=== PATIENT | male | born 1970 | race Caucasian/White ===

== ENCOUNTER 2017-05-19 13:57 | Inpatient (IN) | payer MEDICAID, OTHER ==
--- NOTE | 2017-05-19 14:16 | ED ---
Psych HPI - General Stated Complaint: Petition Time Seen by Provider: 05/19/17 14:00 Source: patient, police, RN notes reviewed, old records reviewed Mode of arrival: ambulatory - History of Present Illness Initial Comments: Is a 46-year-old male with a history of chronic schizophrenia who is brought in by police on a pickup order by Judge Howell. Patient apparently had a hearing 3 days ago and was found to be in need of inpatient care. Patient per the pickup order is noncompliant with treatment/medications. He denies any noncompliance he's not sure why he is here. He does smoke cigarettes he denies any street drugs or alcohol at this time. No fevers chills sweats no trauma. No other complaints MD Complaint: other - Related Data Home Medications Medication Instructions Recorded Confirmed No Known Home Medications [No 05/01/17 05/19/17 Known Home Medications] Allergies Allergy/AdvReac Type Severity Reaction Status Date / Time No Known Allergies Allergy Verified 05/19/17 14:16 Review of Systems ROS Statement: Those systems with pertinent positive or pertinent negative responses have been documented in the HPI. ROS Other: All systems not noted in ROS Statement are negative. Past Medical History Past Medical History: No Reported History History of Any Multi-Drug Resistant Organisms: None Reported Past Surgical History: Unable to Obtain Additional Psychological History / Comment(s): now with psychosis Smoking Status: Never smoker Past Alcohol Use History: None Reported Past Drug Use History: None Reported General Exam - General Exam Comments Initial Comments: This is a well-developed well-nourished awake alert anxious appearing male General appearance: alert, in no apparent distress Head exam: Present: atraumatic, normocephalic, normal inspection Eye exam: Present: normal appearance, PERRL, EOMI. Absent: scleral icterus, conjunctival injection, periorbital swelling ENT exam: Present: mucous membranes dry Neck exam: Present: normal inspection. Absent: tenderness, meningismus, lymphadenopathy Respiratory exam: Present: normal lung sounds bilaterally. Absent: respiratory distress, wheezes, rales, rhonchi, stridor Cardiovascular Exam: Present: regular rate, normal rhythm, normal heart sounds. Absent: systolic murmur, diastolic murmur, rubs, gallop, clicks GI/Abdominal exam: Present: soft, normal bowel sounds. Absent: distended, tenderness, guarding, rebound, rigid Extremities exam: Present: normal inspection, full ROM, normal capillary refill. Absent: tenderness, pedal edema, joint swelling, calf tenderness Back exam: Present: normal inspection Neurological exam: Present: alert, oriented X3, CN II-XII intact Psychiatric exam: Present: anxious, manic Skin exam: Present: warm, dry, intact, normal color. Absent: rash Course Vital Signs 05/19/17 05/19/17 14:01 16:34 Temperature 97.9 F 98.3 F Pulse Rate 18 L 99 Respiratory 116 H 18 Rate Blood Pressure 138/78 145/79 O2 Sat by Pulse 95 98 Oximetry Medical Decision Making - Medical Decision Making Was evaluated by the psychiatric service and will be admitted for inpatient treatment - Lab Data Lab Results 05/19/17 Range/Units 14:28 Urine Opiates Screen Not Detected (NotDetected) Ur Oxycodone Screen Not Detected (NotDetected) Urine Methadone Screen Not Detected (NotDetected) Ur Propoxyphene Screen Not Detected (NotDetected) Ur Barbiturates Screen Not Detected (NotDetected) U Tricyclic Antidepress Not Detected (NotDetected) Ur Phencyclidine Scrn Not Detected (NotDetected) Ur Amphetamines Screen Not Detected (NotDetected) U Methamphetamines Scrn Not Detected (NotDetected) U Benzodiazepines Scrn Not Detected (NotDetected) Urine Cocaine Screen Not Detected (NotDetected) U Marijuana (THC) Screen Detected H (NotDetected) Disposition Clinical Impression: Schizophrenia, acute undifferentiated Disposition: TRANSFER TO PSYCH HOSP/UNIT Condition: Stable
[2017-05-19] MEDS ORDERED: MAG HYDROX/AL HYDROX/SIMETH 30 ML CUP PO PRN (17:56)
[2017-05-19] MEDS ORDERED: LORazepam 1 MG TAB PO PRN (17:56)
[2017-05-19] MEDS ORDERED: MAGNESIUM HYDROXIDE 2,400 MG/10 ML CUP PO PRN (17:56)
[2017-05-19] MEDS ORDERED: ZIPRASIDONE 20 MG VIAL IM PRN (17:56)
--- NOTE | 2017-05-19 18:03 | P.PN ---
Progress Note - Text Progress Note Date: 05/19/17 I went to do the medical consult and patient refused to be seen because he does not believe he needs to be here.
[2017-05-20] MEDS ORDERED: LORazepam 2 MG/ML INJ IM PRN (04:08)
--- NOTE | 2017-05-21 00:09 | P.HP ---
Psychiatric H&P - . H&P Date: 05/20/17 History & Physical: Allergies Allergy/AdvReac Type Severity Reaction Status Date / Time No Known Allergies Allergy Verified 05/19/17 14:16 Vital Signs Temp 97.6 F 05/19/17 17:18 Pulse 112 H 05/19/17 17:18 Resp 18 05/19/17 17:18 BP 131/99 05/19/17 17:18 Pulse Ox 98 05/19/17 16:34 Intake & Output 05/19/17 05/20/17 05/20/17 18:59 06:59 18:59 Weight 81.647 kg Laboratory Last Values Urine Opiates Screen Not Detected (NotDetected) 05/19/17 14:28 Ur Oxycodone Screen Not Detected (NotDetected) 05/19/17 14:28 Urine Methadone Screen Not Detected (NotDetected) 05/19/17 14:28 Ur Propoxyphene Screen Not Detected (NotDetected) 05/19/17 14:28 Ur Barbiturates Screen Not Detected (NotDetected) 05/19/17 14:28 U Tricyclic Antidepress Not Detected (NotDetected) 05/19/17 14:28 Ur Phencyclidine Scrn Not Detected (NotDetected) 05/19/17 14:28 Ur Amphetamines Screen Not Detected (NotDetected) 05/19/17 14:28 U Methamphetamines Scrn Not Detected (NotDetected) 05/19/17 14:28 U Benzodiazepines Scrn Not Detected (NotDetected) 05/19/17 14:28 Urine Cocaine Screen Not Detected (NotDetected) 05/19/17 14:28 U Marijuana (THC) Screen Detected (NotDetected) H 05/19/17 14:28 05/20/17 17:36 IDENTIFYING DATA: Pt is a 46yo WM who was brought in to ED after demand was filed and garbage pick up man order placed. HPI: Patient recently hospitalized involuntarily and deferred his court trial. He was scheduled to follow-up with [facility] per deferral process. A pick-up order was placed after it was reported that the patient did not present to his scheduled appointment. However, upon evaluation today, pt states that he met with Michele (a worker through [facility]) and was supposed to have an intake on Friday as Michele told him he would come to his home. Instead patient was picked up and brought to the hospital. There was some concern from [facility] that patient required an injection of an antipsychotic for prior to outpatient treatment which may have fueled the reason for the pick-up order being filed. Patient is agitated and stating that it is unfair that he is on the unit again. States that "I did nothing wrong...I am not a danger to myself or others". Initially was loud and yelling, but easily calmed down. Although upset, speaking calmly with this provider this morning. Continues to discuss his thoughts of oppression, different shakras and feeling that the people who sent him here should be locked up. PAST PSYCHIATRIC HISTORY: according to staff pt has [place] [facility] [place] Also, previously seen in [facility] with last visit in 2012. Previous medications prescribed include Abilify 20mg QD, Risperdal 0.25mg BID, Wellbutrin SR 150mg BID, Lamictal 25mg BID, Carbamazepine 200mg BID, Lexapro 20mg QD, Ritalin 20mg TID, Ativan 0.5mg PRN daily, Depakote 500mg BID. Unsure if patient has been on a long-acting injectable antipsychotic in the past. Previously diagnosed with Schizoaffective DO, bipolar type, ADHD and Personality DO NOS. PMH: unknown ALLERGIES: NKDA MEDICATIONS: Home Medications Medication Instructions Recorded Confirmed No Known Home Medications [No 05/01/17 05/19/17 Known Home Medications] CHEMICAL DEPENDENCY HISTORY: UDS +MJ; unsure of frequency of use. FAMILY PSYCHIATRIC HISTORY: unknown SOCIAL HISTORY: Pt states that he lives alone in [place], [place]. 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 No further detail about his past at this time. MENTAL STATUS EXAM: Pt is a 46yo WM who is casually dressed. His speech is spontaneous with slight increase in volume and normal rate. Eye contact is fair. Mood is agitated and affect is appropriate. He voices persecutory delusions. No reported hallucinations. Denies SI and HI at this time. Thought process is linear and goal-directed. Unable to assess concentration and orientation. Memory grossly intact. Judgment and Insight is poor. STRENGTHS/WEAKNESSES: able to communicate concerns/poor coping skills, lack of cooperation with treatment INTELLECTUAL FUNCTIONING: average ASSESSMENT: 1. Schizophrenia PLAN: admit to [facility]HU on an involuntary basis. PRN Mauricedon and Ativan IM for agitation. He has not required any injections as of yet. No scheduled psychotropics at this time as patient is opposed to medication and refuses to take. Encourage participation in group activities as appropriate. Continue to monitor for safety. Routine precautions in place. Discuss discharge planning with treatment team. As patient was compliant with outpatient follow-up will attempt to get garbage pick up man order dropped. Will speak with his outpatient provider for further information if available. SW to attempt to obtain collateral information from family and friends if pt gives consent. 05/21/17 00:06 05/21/17 00:08
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
[2017-05-22] MEDS ORDERED: HALOPERIDOL LACTATE 5 MG/ML 1 ML VIAL IM PRN (15:18)
[2017-05-22] MEDS: HALOPERIDOL 5 MG TAB PO SCH (21:24)
[2017-05-23] MEDS: HALOPERIDOL 5 MG TAB PO SCH ×2 (09:33→20:36)
[2017-05-23] MEDS ORDERED: ARIPiprazole 15 MG TAB PO SCH (11:45)
[2017-05-23] MEDS: ARIPiprazole 10 MG TAB PO SCH ×3 (12:46→20:36)
--- NOTE | 2017-05-23 17:22 | PN ---
PROGRESS NOTE DATE OF SERVICE: 05/23/2017 CHIEF COMPLAINT: The patient was admitted due to disorganized behavior, agitation, delusional thinking. He was admitted on a demand for a hearing. INTERVAL HISTORY: Patient has been doing fair. He is quite resistant to taking medications. He continues to focus on the idea that he has been hospitalized on a false premises. He denies that he has any delusional thinking. In spite of that, he makes references throughout the interview to things disconnected from his current situation as well as current reality. As an example, he made comments about how the sun is not out in space, but just behind the clouds and that somehow he is reborn from some ancient existence. When we talked about his issues relating to his involuntary hospitalization, he got quite distressed about the issues. He talked about believing medications would be poison and he saw no indication that he needed to be on medications. He does come out in the day area. He will interact a little with others. He has been reluctant to attend groups. He has not had change in his general health. He tolerates his psychotropic medications. MENTAL STATUS: The patient was restless. He gave fairly good eye contact. He got quite intense through much of the interview. He had an angry manner. He was loud. He did, however, contain himself, in spite of his intensity. His mood was depressed. He was significantly distressed. ASSESSMENT: I will continue the current diagnosis and treatment plan. I had an extensive discussion with the patient regarding his court-ordered status and the expectation for his court hearing, which is coming up soon. The patient asked me what would be the quickest way for him to get out of the hospital. We discussed his getting on medications. I strongly encouraged the patient to give himself a trial on medications while he is in the hospital so that we can work with him toward outpatient planning. The patient did accept getting started on Abilify. I will start Abilify 10 mg twice a day. We will continue to focus on stabilization and discharge planning. DEWAYNE / MARY: [id number] /
[2017-05-24] MEDS: ARIPiprazole 10 MG TAB PO SCH ×2 (09:04→20:22)
[2017-05-24] MEDS: HALOPERIDOL 5 MG TAB PO SCH ×2 (09:04→20:23)
--- NOTE | 2017-05-25 07:26 | PN ---
PROGRESS NOTE DATE OF SERVICE: 05/24/2017 CHIEF COMPLAINT: The patient was admitted due to disorganized behavior, agitation, delusional thinking. He was admitted on demand for hearing. INTERVAL HISTORY: The patient has been doing fairly well. He seems to be making a little progress. He had a quiet evening last night. He slept well. Today he has been up. Staff note that he has been out a little bit more. He did agree to start Abilify and was willing to take 10 mg twice a day. He seems to be a little more organized and appropriate in his thoughts. When I saw him today he was not making the references to many odd things that he had been making yesterday. He asked some appropriate questions. He did seem to be in a little better mood. Staff note that he has not had any episodes of getting loud or angry. He has been coming out more and interacting with others. He has not had change in his general health. He tolerates his psychotropic medications. MENTAL STATUS: Patient gave good eye contact. He was somewhat restless. He answered some questions with appropriate responses. Generally, he was reality based. His affect was a little constricted. His mood was quiet. He did not appear to be distressed. ASSESSMENT: I will continue the current diagnosis and treatment plan. I will continue psychotropic medications the same. I reviewed issues related to the patient's involuntary treatment status. We will continue to focus on stabilization and discharge planning. DEWAYNE / MARY: [id number] /
[2017-05-25] MEDS: ARIPiprazole 10 MG TAB PO SCH ×2 (09:15→20:00)
[2017-05-25] MEDS: HALOPERIDOL 5 MG TAB PO SCH ×2 (09:15→22:38)
[2017-05-25] MEDS: ACETAMINOPHEN TAB 325 MG TAB PO PRN (09:16)
[2017-05-25] MEDS: oxyCODONE-APAP 7.5-325MG 1 EACH TAB PO PRN (19:59)
--- NOTE | 2017-05-25 20:30 | PN ---
PROGRESS NOTE DATE OF SERVICE: 05/25/2017. CHIEF COMPLAINT: The patient was admitted due to disorganized behavior, agitation, delusional thinking. He was admitted on demand for hearing. INTERVAL HISTORY: Patient has been doing fair. He had a quiet evening last night. He slept well. Today he has been up. He does come out in the day area. He interacts with others. He will attend some group activities. He continues to complain about his situation and his court ordered standing. He has been taking his medications. Overall, it is noted that his content of speech is more reality based. He is much less inclined to regress into delusional talk, which was quite noted on Friday when I saw him. He has generally been cooperative and appropriate in his behavior. He has not had change in his general health. He tolerates his psychotropic medication. MENTAL STATUS: The patient gave fairly good eye contact. Psychomotor activity was restless. Thoughts were clear. Affect was anxious. His mood was dysphoric. He was moderately distressed. ASSESSMENT: I will continue the current diagnosis and treatment plan. Continue psychotropic medications the same. Patient will continue Abilify 10 mg twice a day. I did again review issues related to his status with his demand for hearing. We will continue to focus on stabilization and discharge planning. MMODL / IJN: [id number] /
[2017-05-26] MEDS: HALOPERIDOL 5 MG TAB PO SCH (07:47)
[2017-05-26] MEDS: ARIPiprazole 10 MG TAB PO SCH ×2 (07:47→21:47)
[2017-05-26] MEDS: oxyCODONE-APAP 7.5-325MG 1 EACH TAB PO PRN ×3 (07:48→21:49)
--- NOTE | 2017-05-26 16:03 | PN ---
PROGRESS NOTE CHIEF COMPLAINT: The patient was admitted due to disorganized behavior, agitation and delusional thinking. He was admitted on demand for hearing. INTERVAL HISTORY: The patient has been doing fairly well overall. He had a quiet evening last night. He slept well today. He has been up and about. He continues to be disgruntled about the court issues still. He also continues to be fairly reality-based and does not tend to regress into talk about odd and very distant things that have no relevance to reality or his current situation. He understands that the court hearing is coming up and that between now and then there is not much that will change. He has been taking his medications. He has been cooperative. He comes out in the day area. He attends some groups. He has not had change in his general health. He tolerates his psychotropic medications. MENTAL STATUS: Patient gave fair eye contact. He was restless. His thoughts were clear. He was somewhat angry in discussing the court situation. We were able to come to some agreement where he accepted his current situation. He did not seem to be significantly distressed. ASSESSMENT: I will continue the current diagnosis and treatment plan. He will continue psychotropic medications the same. I discussed with the patient that Mental Health may be recommending a long-acting injectable of his Abilify. The patient stated that he was not inclined towards shots. He does not like shots and was worried about the reaction. I discussed with him that on the other hand, the shot may make things much easier for him as far as not having to worry about taking medications on a daily basis. He understands that we will be part of the follow-up planning to address these issues with . We will continue to focus on stabilization and discharge planning. MMMARELYL / HAN: [id number] /
[2017-05-27] MEDS: ARIPiprazole 10 MG TAB PO SCH ×2 (08:09→20:24)
[2017-05-27] MEDS: oxyCODONE-APAP 7.5-325MG 1 EACH TAB PO PRN ×3 (08:10→20:55)
[2017-05-27] MEDS: ACETAMINOPHEN TAB 325 MG TAB PO PRN (14:39)
--- NOTE | 2017-05-27 16:59 | P.PN ---
Progress Note - Text Progress Note Date: 05/27/17 46yo CM admitted on 05/19/17 on a demand for court hearing Last 24hrs: Patient laying in bed asleep during rounds today. When approached he states "it 's not a good morning, you slander me, bear false judgment, I have nothing to say to you". Pt does go on to voice how he feels that I am doing the devil's work and that he is trying to enlighten me. Patient has been cooperative on the unit. No longer yelling when upset. Not displaying any behavioral disturbances. He is now compliant with his prescribed medications. Does not report any adverse effects. Slept 5 hours. Eating well and keeping up with hygiene. Has attended some groups on the unit. MSE: Pt is a 46yo WM casually dressed and fairly well-groomed. His speech is spontaneous with normal rate and volume. Eye contact is good. Mood is calm but frustrated. His affect is appropriate and broad. No reported hallucinations. Does continue to voice delusions. Denies SI and HI at this time. Thought process is linear and logical. Judgment is fair and Insight is limited. ASSESSMENT: 1. Schizophrenia PLAN: Encourage patient to continue with proper hygiene, food intake and appropriate behaviors on the unit. Awaiting court hearing on May 28. Continue Abilify 10mg PO BID. Discuss discharge planning with treatment team following court hearing.
[2017-05-27 20:56] VITALS: RESP 18
--- NOTE | 2017-05-28 06:50 | P.HPMEDMHU ---
History of Present Illness H&P Date: 05/25/17 Chief Complaint: Lower back pain The patient is a 46 her old male who is admitted to the mental health unit is history of schizophrenia, the patient was apparently recently hospitalized involuntarily and deferred his court trial. Apparently was thought the patient was a danger to himself and was recommended for admission, see mental health H&P. We are asked to see the patient yesterday however refused any medical consultation, however today the patient does complain of lower back pain which she reports to be chronic, he reports a history of lumbar disc disease and history of cervical and thoracic stenosis and as previously be seen by pain management and was reportedly on chronic narcotic medications taking proximally 10 mg of Percocet every 6 hours when necessary daily, more recently the patient reports weaning himself off any narcotic medications and has not been taking any for the last several months. Today he reports some mild to moderate pain in his lower back, denies any radicular type symptoms or any bowel or bladder issues. Past Medical History Past Medical History: No Reported History History of Any Multi-Drug Resistant Organisms: None Reported Past Surgical History: Unable to Obtain Additional Psychological History / Comment(s): now with psychosis Smoking Status: Never smoker Past Alcohol Use History: None Reported Past Drug Use History: None Reported Medications and Allergies Home Medications Medication Instructions Recorded Confirmed Type No Known Home Medications [No 05/01/17 05/19/17 History Known Home Medications] Allergies Allergy/AdvReac Type Severity Reaction Status Date / Time No Known Allergies Allergy Verified 05/19/17 14:16 Physical Exam Vitals: Intake and Output 05/25/17 05/25/17 05/25/17 06:59 14:59 22:59 Other: Weight 74.474 kg Patient Weight 05/26/17 06:59 Weight 74.474 kg Constitutional: No acute distress, conversant, pleasant Eyes: Anicteric sclerae, moist conjunctiva, no lid-lag, PERRLA ENMT: NC/AT,Oropharynx clear, no erythema, exudates Neck:Supple, FROM, no masses, or JVD, No carotid bruits; No thyromegaly Lungs: Clear to auscultation, Clear to percussion, Normal respiratory effort, no accessory muscle use Cardiovascular: Heart regular in rate and rhythm, No murmurs, gallops, or rubs no peripheral edema Abdominal: Soft Nontender, nom distended, no guarding, no rebound or rigidity, Normoactive bowel sounds No hepatomegaly, No splenomegaly, No palpable mass No abdominal wall hernia noted Skin: Normal temperature, tone, texture, turgor, No induration No subcutaneous nodules, No rash, lesions, No ulcers Extremities:No digital cyanosis No clubbing, Pedal pulses intact and symmetrical Radial pulses intact and symmetrical Normal gait and station, No calf tenderness Psychiatric: Alert and oriented to person, place and time, Appropriate affect Intact judgement Neuro: Muscles Strength 5/5 in all 4 extremities, Sensation to light touch grossly present throughout, Cranial nerves II-XII grossly intact. No focal sensory deficits Cranial Nerve Examination - Cranial Nerves Cranial Nerve II- Optic: Intact Cranial Nerve III- Oculomotor: Intact Cranial Nerve IV- Trochlear: Intact Cranial Nerve V- Trigeminal: Intact Cranial Nerve - Abducens: Intact Cranial Nerve VII- Facial: Intact Cranial Nerve VIII- Auditory: Intact Cranial Nerve IX- Glossopharyngeal: Intact Cranial Nerve X- Vagus: Intact Cranial Nerve XI- Accessory: Intact Cranial Nerve XII- Hypoglossal: Intact Assessment and Plan (1) DJD (degenerative joint disease), lumbar Current Visit: Yes Status: Acute Code(s): M47.816 - SPONDYLOSIS W/O MYELOPATHY OR RADICULOPATHY, LUMBAR REGION SNOMED Code(s): 875280101 (2) Chronic lumbar pain Current Visit: Yes Status: Acute Code(s): M54.5 - LOW BACK PAIN; G89.29 - OTHER CHRONIC PAIN SNOMED Code(s): 313037109 (3) Schizophrenia, acute undifferentiated Current Visit: Yes Status: Acute Code(s): F20.3 - UNDIFFERENTIATED SCHIZOPHRENIA SNOMED Code(s): 487595747 Plan: patient is admitted to the mental health unit we'll defer any management of his psychiatric illnesses to the primary team. Given patient's detailed history on his chronic lower cervical and thoracic back pain. We'll reinstitute his chronic pain medications will start Percocet 7.5 mg PO q 8 prn. Thank you for this consult will sign off as patient is medically stable
[2017-05-28] MEDS: ARIPiprazole 10 MG TAB PO SCH ×2 (08:27→20:22)
[2017-05-28] MEDS: oxyCODONE-APAP 7.5-325MG 1 EACH TAB PO PRN ×3 (08:27→20:22)
--- NOTE | 2017-05-28 17:10 | P.PN ---
Progress Note - Text Progress Note Date: 05/28/17 46yo CM admitted on 05/19/[address] hearing Last 24hrs: Patient awaiting court hearing today. He continues to be compliant with medications. Not displaying any behavioral disturbances on the unit. He has not been yelling on the unit. Sleeping well and maintaining proper hygiene. Agreed to treatment and was placed on a 60/90. Pt requesting to be discharged and informed that he will need to sign a treatment agreement with [facility] tomorrow prior to discharge. Pt understanding. MSE: Pt is a 46yo WM casually dressed and fairly well-groomed. His speech is spontaneous with normal rate and volume. Eye contact is good. Mood is calm but frustrated. His affect is appropriate and broad. No reported hallucinations. Does continue to voice delusions. Denies SI and HI at this time. Thought process is linear and logical. Judgment is fair and Insight is limited. ASSESSMENT: 1. Schizophrenia PLAN: Encourage patient to continue with proper hygiene, food intake and appropriate behaviors on the unit. Continue Abilify 10mg PO BID. Plan to discharge tomorrow.
[2017-05-29 06:59] VITALS: BP 120/71; PULSE 90; TEMP 98.5
[2017-05-29] MEDS: ARIPiprazole 10 MG TAB PO SCH (08:11)
[2017-05-29] MEDS: oxyCODONE-APAP 7.5-325MG 1 EACH TAB PO PRN (08:13)
--- NOTE | 2017-05-29 10:20 | P.PN ---
Progress Note - Text Progress Note Date: 05/29/17 46yo CM admitted on 05/19/[address] for [address] hearing Last 24hrs: Patient upset with this provider today. He states that he does not want me to be involved in his case any longer as he feels I have slandered his name. Informed that he would be discharged today following treatment agreement with [facility]. Conversation ended abruptly by patient. Staff report that patient remains cooperative and without any behavioral disturbances on the unit. He has been compliant with his medication and no reported adverse effects. MSE: Pt is a 46yo WM casually dressed and fairly well-groomed. His speech is spontaneous with normal rate and volume. Eye contact is good. Mood is agitated. His affect is appropriate. No reported hallucinations. Has not reported any delusions today with this provider. Denies SI and HI at this time. Thought process is linear and logical. Judgment is fair and Insight is limited. ASSESSMENT: 1. Schizophrenia PLAN: Encourage patient to continue with proper hygiene, food intake and appropriate behaviors on the unit. Continue Abilify 10mg PO BID. Plan to discharge today after established treatment plan with [facility].
--- NOTE | 2017-06-19 17:53 | P.DS ---
Providers Date of admission: 05/19/17 16:22 Expected date of discharge: 05/29/17 Attending physician: Emily Quiroz, DO Consults: 05/19/17 17:56 Consult Physician Routine Consulting Provider: Samira Olivas Consult Reason/Comments: H and P Do you want consulting provider notified?: Yes Primary care physician: Stated None - Discharge Diagnosis(es) (1) Schizophrenia Status: Acute Hospital Course: Upon admission, patient stated that "I did nothing wrong...I am not a danger to myself or others". Initially was loud and yelling, but easily calmed down. Continued to discuss his thoughts of oppression, different shakras and feeling that the people who sent him here should be locked up. He continued to focus on his thoughts that he was being hospitalized on false premises. Patient denied delusions but made references to things disconnected from his current situation and reality. Initially Haldol 5mg BID was ordered; however, pt refused this medication as he felt that he did not need psychotropic medications as he did not feel he had a mental illness. During hospitalization , Dr. Brewer examined this patient as coverage for this provider. While covering the patient, he started him on Abilify 10mg BID and patient agreed to this regimen. He remained compliant with medication throughout the remainder of his hospital stay. Patient did not display any behavioral disturbances requiring PRN medications. Although he became upset with this provider as he did not approve of being diagnosed with Schizophrenia and felt that I was "bearing false witness and slandering my name", he did remain pleasant and cooperative with the other staff members on the unit. He had a court hearing scheduled on May 28 to determine commitment as he had been admitted under a demand and pick-up order after signing deferral. During his hearing, patient decided to comply with a 60/90 commitment order without the need for further proceedings, such as testifying, in court. On day of discharge, patient continued to be compliant with medication without any adverse effects reported. He continued to deny SI, HI and AVH. Patient did not appear to be a danger to himself or others and was deemed able to care for himself independently; therefore, he was discharged in stable condition with plan to follow-up with [facility] on an outpatient basis per signed treatment plan. Patient Condition at Discharge: Stable Plan - Discharge Summary New Discharge Prescriptions: New ARIPiprazole [Abilify] 10 mg PO 899,2099 #60 tab Discharge Medication List ARIPiprazole [Abilify] 10 mg PO 00,2099 #60 tab 05/29/17 [Rx] Follow up Appointment(s)/Referral(s): [facility] [Outside] - 06/02/17 3:00 pm (06/02/17 at 3:00 pm with Michele in [place] 06-17-17 @ 2:[address] Campuzano in [place]) None,Stated [Primary Care Provider] - 1-2 days Patient Instructions/Handouts: Schizophrenia (DC) Activity/Diet/Wound Care/Special Instructions: Remove all weapons and firearms from the home; Refrain from street drugs and alcohol; Regular diet; Activity as tolerated; Follow-up with your PCP in 1-2 days; Keep all scheduled follow-up appointments for continuity of care; Any problems call the Crisis Line at or 431 in case of emergency; Call either your PCP or your Outpatient Psychiatric services for med. refills. Discharge Disposition: HOME SELF-CARE
== END 2017-05-29 12:12 | disposition home or self-care (01) | DRG 750 ==
LOC: EC 13:57 → 3MHU 16:22
PROVIDERS: ADMIT Psychiatry & Neurology Psychiatry; ATTEND Psychiatry & Neurology Psychiatry
DX: F20.9 Schizophrenia, unspecified (principal); F39 Unspecified mood [affective] disorder; F90.9 Attention-deficit hyperactivity disorder, unspecified type; F17.210 Nicotine dependence, cigarettes, uncomplicated; Z91.19 Patient's noncompliance with other medical treatment and regimen
CPT/HCPCS: 80306; 82075; 99285

== ENCOUNTER 2023-03-03 11:00 | Inpatient (IN) | payer MEDICAID, OTHER ==
[2023-03-03 11:52] LABS: Basophils % (A) 0 %; Eosinophils # (A) 0.1 k/uL (0-0.7); Eosinophils % (A) 1 %; HCT 44.7 % (39.0-53.0); Lymphocytes # (A) 1.4 k/uL (1.0-4.8); Lymphocytes % (A) 14 %; MCH 32.7 pg (25.0-35.0); MCHC 33.6 g/dL (31.0-37.0); MCV 97.4 fL (80.0-100.0); Mean Platelet Volume 7.6; Monocytes # (A) 0.6 k/uL (0-1.0); Monocytes % (A) 6 %; Neutrophils # (A) 7.3 k/uL (1.3-7.7); Neutrophils % (A) 77 %; Platelet Count 292 k/uL (150-450); RBC 4.59 m/uL (4.30-5.90); RDW 13.3 % (11.5-15.5); WBC 9.6 k/uL (3.8-10.6)
[2023-03-03 12:08] LABS: African American GFR (CKD) >90 (>60 ml/min/1.73 sqM); Alcohol <10 mg/dL; Anion Gap 15 mmol/L; Blood Urea Nitrogen 23 mg/dL (9-20); Calcium 9.3 mg/dL (8.4-10.2); Carbon Dioxide 19 mmol/L (22-30); Chloride 105 mmol/L (98-107); Glucose 132 mg/dL (74-99); Non-African American GFR(CKD) 85 (>60 ml/min/1.73 sqM); Potassium 3.7 mmol/L (3.5-5.1); Sodium 139 mmol/L (137-145)
[2023-03-03] MEDS ORDERED: LORazepam 2 MG/ML INJ IM STA (12:26)
[2023-03-03] MEDS ORDERED: HALOPERIDOL LACTATE 5 MG/ML 1 ML VIAL IM STA (12:26)
[2023-03-03 12:40] LABS: Amphetamine Screen,Urine Not Detected (NotDetected); Barbiturate Screen,Urine Not Detected (NotDetected); Benzodiazepines Screen,Urine Not Detected (NotDetected); Cocaine Screen,Urine Not Detected (NotDetected); Methadone Screen, Urine Not Detected (NotDetected); Opiate Screen,Urine Not Detected (NotDetected); Oxycodone Screen, Urine Not Detected (NotDetected); Phencyclidine Screen,Urine Not Detected (NotDetected); Tricyclic Antidepressant,Urine Not Detected (NotDetected); Urn Cannabinoid Scrn Detected (NotDetected)
--- NOTE | 2023-03-03 15:29 | ED ---
General Adult HPI - General Chief complaint: Psychiatric Symptoms Stated complaint: mental health Time Seen by Provider: 03/03/23 11:02 Source: patient, police, RN notes reviewed, old records reviewed Mode of arrival: EMS - History of Present Illness Initial comments: Patient is a 52-year-old male who presents emergency Department in place custody and petitioned for paranoiac, combative behavior and delusions. Patient was threatening construction workers with shovel. He technically spitting in the please face. States we are been controlled by the Covid virus. States they is on the apocalypse is coming. Denies any suicidal ideations or attempts or plans. Denies any homicidal ideations, attempts, plans. Denies any hallucinations. His no other acute complaints at this time. Is currently in 4 point restraints as he is not cooperative with staff and is violent. - Related Data Home Medications Medication Instructions Recorded Confirmed No Known Home Medications 03/03/23 03/03/23 Allergies Allergy/AdvReac Type Severity Reaction Status Date / Time No Known Allergies Allergy Verified 05/19/17 14:16 Review of Systems ROS Statement: Those systems with pertinent positive or pertinent negative responses have been documented in the HPI. Review of Systems: CONST: Denies fever EYES: Denies blurry vision ENT: Denies nasal congestion C/V: Denies Chest pain RESP: Denies shortness of breath GI: Denies abdominal pain : Denies dysuria SKIN: Denies rash. MSK: Denies joint pain. NEURO: Denies headache PSYCH: Denies suicidal and homicidal ideations/plans/attempts. Denies visual or auditory hallucinations. ROS Other: All systems not noted in ROS Statement are negative. Past Medical History Past Medical History: No Reported History History of Any Multi-Drug Resistant Organisms: None Reported Past Surgical History: Unable to Obtain Past Psychological History: Schizophrenia Past Alcohol Use History: None Reported Past Drug Use History: None Reported General Exam - General Exam Comments Initial Comments: General: Appears disheveled. Currently in 4-point restraints. Appears delusional with paranoia. HEAD: Normal with no signs of head trauma. EYES: PERRLA, EOMI, conjunctiva normal, no discharge. Pupils are 3 mm equal bilaterally. ENT: Hearing grossly intact, normal oropharynx. RESPIRATORY: Clear breath sounds bilaterally. No wheezes, rales, or rhonchi. C/V: Regular rate and rhythm. S1 and S2 auscultated,peripheral pulses 2+ and intact throughout ABD: Abd is soft, nontender, nondistended EXT: Normal range of motion, no obvious deformity SKIN: No rashes or lesions observed on exposed skin. NEURO: Alert and oriented x 4. Course Vital Signs 03/03/23 03/03/23 03/03/23 11:01 11:02 11:05 Temperature 98 F Pulse Rate 118 H 100 100 Respiratory 20 20 20 Rate Blood Pressure 140/100 140/100 140/100 O2 Sat by Pulse 99 98 98 Oximetry 03/03/23 03/03/23 03/03/23 13:05 15:00 16:00 Temperature 98 F Pulse Rate 98 70 68 Respiratory 20 20 16 Rate Blood Pressure 130/60 130/60 96/60 O2 Sat by Pulse 98 98 98 Oximetry 03/03/23 17:48 Temperature Pulse Rate 56 L Respiratory 20 Rate Blood Pressure 110/60 O2 Sat by Pulse 98 Oximetry Procedures - Restraint - Face to Face Restraint Occurrence 1 Patient's Immediate Situation: Endangers self safety, Endangers others' safety, Endangers staff safety, Violent behavior Patient's Reaction to the Intervention: Uncooperative Patient's Medical & Behavioral Condition: Awake, Alert, Follows directions Need to Continue or Terminate Restraint or Seclusion: Continue Face to Face Eval of Restraint Date: 03/03/23 Face to Face Eval of Restraint Time: 10:45 Medical Decision Making - Medical Decision Making Was pt. sent in by a medical professional or institution (, PA, FLOOR COVERER, urgent care, hospital, or snf...) When possible be specific @ -No Did you speak to anyone other than the patient for history (EMS, parent, family, police, friend...)? What history was obtained from this source @ -No Did you review nursing and triage notes (agree or disagree)? Why? @ -I reviewed and agree with nursing and triage notes Were old charts reviewed (outside hosp., previous admission, EMS record, old EKG, old radiological studies, urgent care reports/EKG's, snf records)? Report findings @ -No old charts were reviewed Differential Diagnosis (chest pain, altered mental status, abdominal pain women, abdominal pain men, vaginal bleeding, weakness, fever, dyspnea, syncope, headache, dizziness, GI bleed, back pain, seizure, CVA, palpatations, mental health, musculoskeletal)? @ -Differential Mental Health Depression, anxiety, bipolar, psychosis, schizophrenia, borderline personality, situational depression, adjustment disorder, behavioral disorder, brain tumor, malingering, substance abuse, encephalopathy, medication reaction, dementia, hypothyroidism, degenerative neurologic disorder, lupus.... This is not meant to be all-inclusive list EKG interpreted by me (3pts min.). @ -None done X-rays interpreted by me (1pt min.). @ -None done CT interpreted by me (1pt min.). @ -None done U/S interpreted by me (1pt. min.). @ -None done What testing was considered but not performed or refused? (CT, X-rays, U/S, labs)? Why? @ -None What meds were considered but not given or refused? Why? @ -None Did you discuss the management of the patient with other professionals (professionals i.e. , PA, FLOOR COVERER, lab, RT, psych nurse, web content & social media manager, data analysis assistant, teacher, nuclear officer, family independence case manager)? Give summary @ -Discussed with the EPS who agreed to evaluation. EPS evaluated patient and determined the patient does meet inpatient criteria. Requested certification be completed which was done by myself. Was smoking cessation discussed for >3mins.? @ -No Was critical care preformed (if so, how long)? @ -No Were there social determinants of health that impacted care today? How? (Homelessness, low income, unemployed, alcoholism, drug addiction, transpo rtation, low edu. Level, literacy, decrease access to med. care, alf, rehab)? @ -No Was there de-escalation of care discussed even if they declined (Discuss DNR or withdrawal of care, Hospice)? DNR status @ -No What co-morbidities impacted this encounter? (DM, HTN, Smoking, COPD, CAD, Cancer, CVA, ARF, Chemo, Hep., AIDS, mental health diagnosis, sleep apnea, morbid obesity)? @ -Prior mental health illness. Was patient admitted / discharged? Hospital course, mention meds given and route, prescriptions, significant lab abnormalities, going to OR and other pertinent info. @ -Based on the patient's presentation and physical exam, he is delusional and paranoid I do believe that he requires psychiatric evaluation. He was placed in green scrubs. He was placed in 4 point restraints. Rook-[id number]-[id number] with by myself. He is not cooperative and is not redirectable with verbal instructions and therefore was administered IM Haldol and Ativan for agitation. We will obtain basic labs as well as Covid swab. Vital signs within acceptable limits. Alcohol level undetectable. UDS positive for marijuana. Remainder of lavatory studies within acceptable limits. HIV and hepatitis screening was obtained as the patient spit in the police officers face. At this time patient is medically cleared for evaluation by psychiatry. Disposition is pending psychiatric evaluation. EPS notified. EPS evaluated the patient. I was notified the patient does meet inpatient criteria. Requested clinical certificate which I completed. Patient is pending psychiatric admissio n. Undiagnosed new problem with uncertain prognosis? @ -No Drug Therapy requiring intensive monitoring for toxicity (Heparin, Nitro, Insulin, Cardizem)? @ -No Were any procedures done? @ -No Diagnosis/symptom? @ -Encounter for psychiatric evaluation, acute psychosis Acute, or Chronic, or Acute on Chronic? @ -Acute Uncomplicated (without systemic symptoms) or Complicated (systemic symptoms)? @ -Complicated Side effects of treatment? @ -No Exacerbation, Progression, or Severe Exacerbation? @ -No Poses a threat to life or bodily function? How? (Chest pain, [place], [place], pneumonia, PE, COPD, DKA, ARF, appy, cholecystitis, CVA, Diverticulitis, Homicidal, Suicidal, threat to staff... and all critical care pts) @ -Yes - Lab Data Result diagrams: 03/03/23 11:02 03/03/23 11:02 Lab Results 03/03/23 03/03/23 03/03/23 Range/Units 11:02 11:02 11:02 WBC 9.6 (3.8-10.6) k/uL RBC 4.59 (4.30-5.90) m/uL Hgb 15.0 (13.0-17.5) gm/dL Hct 44.7 (39.0-53.0) % MCV 97.4 (80.0-100.0) fL MCH 32.7 (25.0-35.0) pg MCHC 33.6 (31.0-37.0) g/dL RDW 13.3 (11.5-15.5) % Plt Count 292 (150-450) k/uL MPV 7.6 Neutrophils % 77 % Lymphocytes % 14 % Monocytes % 6 % Eosinophils % 1 % Basophils % 0 % Neutrophils # 7.3 (1.3-7.7) k/uL Lymphocytes # 1.4 (1.0-4.8) k/uL Monocytes # 0.6 (0-1.0) k/uL Eosinophils # 0.1 (0-0.7) k/uL Basophils # 0.0 (0-0.2) k/uL Sodium 139 (137-145) mmol/L Potassium 3.7 (3.5-5.1) mmol/L Chloride 105 (98-107) mmol/L Carbon Dioxide 19 L (22-30) mmol/L Anion Gap 15 mmol/L BUN 23 H (9-20) mg/dL Creatinine 1.01 (0.66-1.25) mg/dL Est GFR (CKD-EPI)AfAm >90 (>60 ml/min/1.73 sqM) Est GFR (CKD-EPI)NonAf 85 (>60 ml/min/1.73 sqM) Glucose 132 H (74-99) mg/dL Calcium 9.3 (8.4-10.2) mg/dL Urine Opiates Screen Not Detected (NotDetected) Ur Oxycodone Screen Not Detected (NotDetected) Urine Methadone Screen Not Detected (NotDetected) Ur Propoxyphene Screen Not Detected (NotDetected) Ur Barbiturates Screen Not Detected (NotDetected) U Tricyclic Antidepress Not Detected (NotDetected) Ur Phencyclidine Scrn Not Detected (NotDetected) Ur Amphetamines Screen Not Detected (NotDetected) U Methamphetamines Scrn Not Detected (NotDetected) U Benzodiazepines Scrn Not Detected (NotDetected) Urine Cocaine Screen Not Detected (NotDetected) U Marijuana (THC) Screen Detected H (NotDetected) Serum Alcohol <10 mg/dL Hep Bs Antigen Hep B Core Total Ab Hep C IgG Ab HIV (1&2) Ag/Ab (Rapid) (Nonreactive) Influenza Type A (PCR) (Not Detectd) Influenza Type B (PCR) (Not Detectd) RSV (PCR) (Not Detectd) SARS-CoV-2 (PCR) (Not Detectd) 03/03/23 03/03/23 03/03/23 Range/Units 11:02 11:02 11:02 WBC (3.8-10.6) k/uL RBC (4.30-5.90) m/uL Hgb (13.0-17.5) gm/dL Hct (39.0-53.0) % MCV (80.0-100.0) fL MCH (25.0-35.0) pg MCHC (31.0-37.0) g/dL RDW (11.5-15.5) % Plt Count (150-450) k/uL MPV Neutrophils % % Lymphocytes % % Monocytes % % Eosinophils % % Basophils % % Neutrophils # (1.3-7.7) k/uL Lymphocytes # (1.0-4.8) k/uL Monocytes # (0-1.0) k/uL Eosinophils # (0-0.7) k/uL Basophils # (0-0.2) k/uL Sodium (137-145) mmol/L Potassium (3.5-5.1) mmol/L Chloride (98-107) mmol/L Carbon Dioxide (22-30) mmol/L Anion Gap mmol/L BUN (9-20) mg/dL Creatinine (0.66-1.25) mg/dL Est GFR (CKD-EPI)AfAm (>60 ml/min/1.73 sqM) Est GFR (CKD-EPI)NonAf (>60 ml/min/1.73 sqM) Glucose (74-99) mg/dL Calcium (8.4-10.2) mg/dL Urine Opiates Screen (NotDetected) Ur Oxycodone Screen (NotDetected) Urine Methadone Screen (NotDetected) Ur Propoxyphene Screen (NotDetected) Ur Barbiturates Screen (NotDetected) U Tricyclic Antidepress (NotDetected) Ur Phencyclidine Scrn (NotDetected) Ur Amphetamines Screen (NotDetected) U Methamphetamines Scrn (NotDetected) U Benzodiazepines Scrn (NotDetected) Urine Cocaine Screen (NotDetected) U Marijuana (THC) Screen (NotDetected) Serum Alcohol mg/dL Hep Bs Antigen Nonreactive Hep B Core Total Ab Nonreactive Hep C IgG Ab Nonreactive HIV (1&2) Ag/Ab (Rapid) Nonreactive (Nonreactive) Influenza Type A (PCR) Not Detected (Not Detectd) Influenza Type B (PCR) Not Detected (Not Detectd) RSV (PCR) Not Detected (Not Detectd) SARS-CoV-2 (PCR) Not Detected (Not Detectd) Disposition Clinical Impression: Acute psychosis, Encounter for psychiatric assessment Disposition: ADMITTED IP TO THIS HOSP Condition: Stable
[2023-03-03 18:32] LABS: Hepatitis B Surface Antigen Nonreactive; Hepatitis C IgG Antibody Nonreactive
[2023-03-03] MEDS ORDERED: LORazepam 2 MG/ML INJ IM PRN (21:44)
[2023-03-03] MEDS ORDERED: IBUPROFEN 600 MG TAB PO PRN (21:44)
[2023-03-03] MEDS ORDERED: MAGNESIUM HYDROXIDE 2,400 MG/30 ML CUP PO PRN (21:44)
[2023-03-03] MEDS ORDERED: MAG HYDROX/AL HYDROX/SIMETH 30 ML CUP PO PRN (21:44)
[2023-03-03] MEDS ORDERED: LORazepam 1 MG TAB PO PRN (21:44)
[2023-03-03] MEDS ORDERED: HALOPERIDOL LACTATE 5 MG/ML 1 ML VIAL IM PRN (21:44)
[2023-03-03] MEDS ORDERED: haloperidoL 5 MG TAB PO PRN (21:44)
[2023-03-03] MEDS ORDERED: ACETAMINOPHEN TAB 325 MG TAB PO PRN (21:44)
[2023-03-04] MEDS: FOLIC ACID 1 MG TAB PO SCH (10:32)
[2023-03-04] MEDS: NICOTINE 14MG/24HR PATCH TRANSDERM SCH (10:32)
[2023-03-04 12:35] LABS: Appearance,Urine Cloudy (Clear); Bilirubin,Urine 1+ (Negative); Blood,Urine Negative (Negative); Calcium Oxalate Crystals,Urine Moderate /hpf; Glucose,Urine (UA) Negative (Negative); Hyaline Casts,Urine 29 /lpf (0-2); Ketones,Urine Trace (Negative); Leukocyte Esterase,Urine Negative (Negative); Mucus,Urine Many /hpf; Nitrite,Urine Negative (Negative); PH, Urine 5.5 (5.0-8.0); Protein,Urine 1+ (Negative); RBC,Urine 4 /hpf (0-5); Specific Gravity,Urine 1.033 (1.001-1.035); WBC,Urine 3 /hpf (0-5)
[2023-03-04 12:41] LABS: Color,Urine Yellow
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
[2023-03-04] MEDS: PALIPERIDONE 3 MG TAB.ER.24 PO SCH (20:23)
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
[2023-03-05 07:09] VITALS: RESP 16
--- NOTE | 2023-03-05 09:00 | XR ---
EXAMINATION TYPE: XR lumbar spine 2 or 3V DATE OF EXAM: 03/05/2023 CLINICAL HISTORY: pain TECHNIQUE: Three views of the lumbar spine are submitted. COMPARISON: None. FINDINGS: There are 5 lumbar type vertebral bodies identified. The lumbar spine shows satisfactory alignment w ithout evidence of acute fracture or dislocation. Vertebral body heights are within normal limits. Moderate to severe degenerative disc space narrowing L5-S1 The overlying soft tissue appears unremar kable. IMPRESSION: No acute fracture or dislocation is seen in the lumbar spine. ICD 10 NO FRACTURE, INITIAL EVALUATION
[2023-03-05] MEDS: NICOTINE 14MG/24HR PATCH TRANSDERM SCH ×2 (09:01→09:55)
[2023-03-05] MEDS: PALIPERIDONE 3 MG TAB.ER.24 PO SCH (09:02)
[2023-03-05] MEDS: FOLIC ACID 1 MG TAB PO SCH (09:02)
--- NOTE | 2023-03-05 11:45 | P.PN ---
Progress Note - Text Progress Note Date: 03/05/23 Interval History: Patient was seen wandering the hallways and was directable and agreeable to speak with magazine writer in his room. Currently, the patient is not reporting any suicidal or homicidal ideation, intention or plan. He continues to report bizarre delusions including feeling like the [place] has placed radio waves and signals in his neighborhood targeting him. He also appears to be religiously preoccupied with his restorationist he praises "Tiamat." He remains fixated on being discharged so that he may take care of his pet cats. Today however, he is agreeable to starting medication. After significant discussion, he states that he will take the Abilify and lithium. His insight continues to be poor as he does not believe that he has bipolar. Mental Status Exam: General Appearance: Patient appears to be stated age is alert, directable, and cooperative. Behavior: Patient is calmly seated without any agitated behavior. Speech: Patient's speech is fluent and less pressured than yesterday. Tangential at times. Mood/Affect: Mood is "worried about my cats," affect is congruent and intense and nervous. Suicidality/Homicidality: Patient denies any suicidal or homicidal ideation. Perceptions: Patient denies any visual hallucinations and denies any auditory h allucinations Though content/process: Patient continues to endorse bizarre delusional thought content, paranoia, worship preoccupation, grandiosity Memory and concentration: AOX3, grossly intact for the purposes of this session Judgment and insight: Poor Vital Signs Temp 97.3 F L 03/05/23 06:34 Pulse 90 03/05/23 06:34 Resp 16 03/05/23 06:34 BP 115/70 03/05/23 06:34 Pulse Ox 97 03/04/23 06:47 FiO2 Laboratory Results - Last 24 Hours 03/04/23 12:10 Urine Color Yellow Urine Appearance Cloudy Urine pH 5.5 Ur Specific [place] 1.033 Urine Protein 1+ H Urine Glucose (UA) Negative Urine Ketones Trace H Urine Blood Negative Urine Nitrite Negative Urine Bilirubin 1+ H Urine Urobilinogen 2.0 Ur Leukocyte Esterase Negative Urine RBC 4 Urine WBC 3 Urine WBC Clumps Rare H Calcium Oxalate Crystal Moderate H Hyaline Casts 29 H Urine Mucus Many H Assessment Schizoaffective disorder, bipolar type Plan: -Patient continues to meet criteria for inpatient psychiatric admission for symptom stabilization and safety. Second clinical certificate was filled out for the court. -Medications: Start Abilify 5 mg by mouth at bedtime for mood stabilization/psychosis. Likely transition to long-acting injectable. Start lithium 450 mg by mouth twice a day for mood stabilization -When necessary Ativan and Haldol for agitation/aggression. -NRT - nicotine patch -SW on board for discharge planning. Encouraged the patient to participate in milieu.
[2023-03-05 12:17] LABS: Basophils % (A) 0 %; Eosinophils # (A) 0.1 k/uL (0-0.7); Eosinophils % (A) 1 %; HCT 44.4 % (39.0-53.0); HGB 14.3 gm/dL (13.0-17.5); Lymphocytes # (A) 1.6 k/uL (1.0-4.8); Lymphocytes % (A) 21 %; MCH 31.8 pg (25.0-35.0); MCHC 32.1 g/dL (31.0-37.0); Mean Platelet Volume 8.1; Monocytes # (A) 0.4 k/uL (0-1.0); Monocytes % (A) 5 %; Neutrophils # (A) 5.5 k/uL (1.3-7.7); Neutrophils % (A) 71 %; Platelet Count 272 k/uL (150-450); RBC 4.48 m/uL (4.30-5.90); RDW 13.2 % (11.5-15.5); WBC 7.8 k/uL (3.8-10.6)
[2023-03-05 12:32] LABS: ALT 15 U/L (4-49); AST 31 U/L (17-59); African American GFR (CKD) >90 (>60 ml/min/1.73 sqM); Albumin 4.3 g/dL (3.5-5.0); Alkaline Phosphatase 67 U/L (38-126); Anion Gap 11 mmol/L; Bilirubin, Delta 0.2 mg/dL (0.0-0.2); Bilirubin,Unconjugated 0.3 mg/dL (0.0-1.1); Blood Urea Nitrogen 18 mg/dL (9-20); Calcium 9.1 mg/dL (8.4-10.2); Carbon Dioxide 29 mmol/L (22-30); Chloride 103 mmol/L (98-107); Glucose 84 mg/dL (74-99); Non-African American GFR(CKD) >90 (>60 ml/min/1.73 sqM); Potassium 3.9 mmol/L (3.5-5.1); Sodium 143 mmol/L (137-145); Total Bilirubin 0.5 mg/dL (0.2-1.3); Total Protein 7.2 g/dL (6.3-8.2)
--- NOTE | 2023-03-05 12:33 | XR ---
EXAMINATION TYPE: XR hand limited LT DATE OF EXAM: 03/05/2023 CLINICAL HISTORY: pain TECHNIQUE: Frontal, lateral images of the left hand are obtained. COMPARISON: None. FINDINGS: There is no acute fracture/dislocation evident. The joint spaces appear within normal limi ts. The overlying soft tissue appears unremarkable. IMPRESSION: There is no acute fracture or dislocation. ICD 10 NO FRACTURE, INITIAL EVALUATION
[2023-03-05] MEDS: HYDROcodone/APAP 5-325MG 1 EACH TAB PO PRN ×2 (14:53→21:12)
[2023-03-05 20:01] LABS: Chol/HDL Ratio 3.51 Ratio; LDL Cholesterol,Calculated 92.3 mg/dL (0.0-131.0); VLDL Calculation 14.28 mg/dL (5.00-40.00)
[2023-03-05] MEDS ORDERED: ARIPiprazole 5 MG TAB PO SCH (21:00)
[2023-03-05] MEDS: LITHIUM CARBONATE 150 MG CAP PO SCH ×2 (21:08→22:05)
[2023-03-06] MEDS: NICOTINE 14MG/24HR PATCH TRANSDERM SCH (08:31)
[2023-03-06] MEDS: FOLIC ACID 1 MG TAB PO SCH (08:31)
[2023-03-06] MEDS: LITHIUM CARBONATE 150 MG CAP PO SCH (08:31)
[2023-03-06] MEDS: HYDROcodone/APAP 5-325MG 1 EACH TAB PO PRN ×3 (08:34→20:53)
--- NOTE | 2023-03-06 13:09 | P.PN ---
Progress Note - Text Progress Note Date: 03/06/23 Interval History: Patient was seen wandering the hallways and was directable and agreeable to speak with contract writer in his room. Currently, the patient is not reporting any suicidal or homicidal ideation, intention or plan. The patient is very fixated on not taking any prescribed medication. He reports that he is experiencing significant side effects including "my calves tightening." He also reports that he was unable to sleep well last night because he felt like he was experiencing significant hot flashes and sweats. The patient continues to be religiously preoccupied, grandiose, and delusional. He goes on multiple tangents regarding [employer] and the pharmaceutical industry. He expresses that he is "of God." He reports that he is unhappy with this provider as this provider is "you are , and you should know that these medications do not work and he needs something more natural." He is agreeable to continuing his medications however at a lower dose. Mental Status Exam: General Appearance: Patient appears to be stated age is alert, difficult to d irect but cooperates. Behavior: Patient is standing up in his room displaying psychomotor agitation. Speech: Patient's speech is fluent and pressured. Tangential at times. Mood/Affect: Mood is "these medications are wrong," affect is expansive and intense. Suicidality/Homicidality: Patient denies any suicidal or homicidal ideation. Perceptions: Patient denies any visual hallucinations and denies any auditory hallucinations Though content/process: Patient continues to endorse bizarre delusional thought content, paranoia, pentecostal preoccupation, grandiosity Memory and concentration: AOX3, grossly intact for the purposes of this session Judgment and insight: Poor Vital Signs Temp 97.9 F 03/06/23 06:25 Pulse 88 03/06/23 06:25 Resp 16 03/06/23 06:25 BP 112/76 03/06/23 06:25 Pulse Ox 97 03/04/23 06:47 FiO2 Laboratory Results - Last 24 Hours 03/05/23 03/05/23 11:00 11:[address] Glu mg/dL 111 Hemoglobin A1c 5.5 Triglycerides 71.40 Cholesterol 149.00 LDL Cholesterol, Calc 92.3 VLDL Cholesterol, Calc 14.28 HDL Cholesterol 42.40 Cholesterol/HDL Ratio 3.51 Assessment Schizoaffective disorder, bipolar type Plan: -Patient continues to meet criteria for inpatient psychiatric admission for symptom stabilization and safety. Second clinical certificate was filled out for the court. Patient deferred mental health court. If he continues to refuse medications, we will pursue court order. -Medications: Increase Abilify to 10 mg by mouth at bedtime for mood stabilization/psychosis. Likely transition to long-acting injectable. Decrease lithium to 300 mg by mouth twice a day mood stabilization -When necessary Ativan and Haldol for agitation/aggression. -NRT - nicotine patch -SW on board for discharge planning. Encouraged the patient to participate in milieu.
[2023-03-06] MEDS: LITHIUM CARBONATE 300 MG CAP PO SCH (20:50)
[2023-03-06] MEDS ORDERED: ARIPiprazole 10 MG TAB PO SCH (21:00)
[2023-03-07] MEDS: FOLIC ACID 1 MG TAB PO SCH (08:49)
[2023-03-07] MEDS: NICOTINE 14MG/24HR PATCH TRANSDERM SCH (08:50)
[2023-03-07] MEDS: LITHIUM CARBONATE 300 MG CAP PO SCH ×2 (08:50→20:33)
[2023-03-07] MEDS: HYDROcodone/APAP 5-325MG 1 EACH TAB PO PRN ×3 (08:54→22:05)
--- NOTE | 2023-03-07 11:43 | P.PN ---
Progress Note - Text Progress Note Date: 03/07/23 Interval History: Patient was seen wandering the hallways and was directable and agreeable to speak with automobile service writer in the office. Currently, the patient is not reporting any suicidal or homicidal ideation, intention, and/or plan. Is not reporting any auditory or visual hallucinations. He denies any paranoia or other delusion has been adherent with his medications. He does report concerns for "calf tightness at night." The patient is apologetic today for initially refusing medication. He states that he believed he was being prescribed too much medication and acknowledges that he was started on a lower dose. Initially, the patient maintains a linear and logical conversation however when the topic comes to increasing his medications, the patient then begins to rant about religiously preoccupied themes and "universal energy." Mental Status Exam: General Appearance: Patient appears to be stated age is alert, somewhat directable but cooperates. Behavior: Patient is seated upright in his chair without any agitated behavior. Speech: Patient's speech is fluent and pressured. Less tangential than before. Mood/Affect: Mood is "I believe in God's true energy," affect is less expansive but continues to be intense Suicidality/Homicidality: Patient denies any suicidal or homicidal ideation. Perceptions: Patient denies any visual hallucinations and denies any auditory hallucinations Though content/process: Patient continues to endorse bizarre delusional thought content, paranoia, church preoccupation, grandiosity however is less forthcoming with his delusions Memory and concentration: AOX3, grossly intact for the purposes of this session Judgment and insight: Poor Vital Signs Temp 97.9 F 03/06/23 06:25 Pulse 88 03/06/23 06:25 Resp 16 03/06/23 06:25 BP 112/76 03/06/23 06:25 Pulse Ox 97 03/04/23 06:47 FiO2 Assessment: Schizoaffective disorder, bipolar type Cannabis use disorder Plan: -Patient continues to meet criteria for inpatient psychiatric admission for symptom stabilization and safety. Second clinical certificate was filled out for the court. Patient deferred mental health court. -Medications: Increase Abilify to 15 mg by mouth at bedtime for mood stabilization/psychosis. Titrate to 20 mg over the weekend. Continue lithium 300 mg by mouth twice a day mood stabilization -When necessary Ativan and Haldol for agitation/aggression. -NRT - nicotine patch -SW on board for discharge planning. Encouraged the patient to participate in milieu.
[2023-03-07] MEDS: CYCLOBENZAPRINE 5 MG TAB PO SCH (20:33)
[2023-03-07] MEDS: ARIPiprazole 15 MG TAB PO SCH (20:33)
[2023-03-07] MEDS ORDERED: BACITRACIN/POLYMYX 500-10,000 UNIT/GM OINT 14 GM TUBE TOPICAL SCH (21:00)
[2023-03-08] MEDS: LITHIUM CARBONATE 300 MG CAP PO SCH ×2 (08:40→20:26)
[2023-03-08] MEDS: NICOTINE 14MG/24HR PATCH TRANSDERM SCH (08:40)
[2023-03-08] MEDS: FOLIC ACID 1 MG TAB PO SCH (08:40)
[2023-03-08] MEDS: HYDROcodone/APAP 5-325MG 1 EACH TAB PO PRN ×2 (08:43→15:41)
--- NOTE | 2023-03-08 15:17 | P.PN ---
Subjective Progress Note Date: 03/08/23 Principal diagnosis: Patient Name: Deshaun Carlton Date of : 70 Patient Status: Inpatient Attending Provider: Pravin Hill Date: 03/08/23 Subjective data: The patient was seen while he was laying down in bed and promptly responded and getting up and was cooperative Patient however shows significant flight of ideas and circumstantiality tangentiality and delusional thinking Patient was unable to be redirected and remains expansive and euphoric Patient's formal and operational judgment and insight remains markedly impaired Mental Status Exam: General Appearance: Patient appears to be stated age is alert, somewhat directable but cooperates. Behavior: Patient is seated upright in his chair without any agitated behavior. Speech: Patient's speech is fluent and pressured. Less tangential than before. Mood/Affect: Mood is "euphoric and expansive," Suicidality/Homicidality: Patient denies any suicidal or homicidal ideation. Perceptions: Patient denies any visual hallucinations and denies any auditory hallucinations Though content/process: Patient continues to endorse bizarre delusional thought content, paranoia, jehovah's witness preoccupation, grandiosity however is less forthcoming with his delusions Memory and concentration: AOX3, grossly intact for the purposes of this session Judgment and insight: Poor Assessment: Schizoaffective disorder, bipolar type Cannabis use disorder Plan: -Patient continues to meet criteria for inpatient psychiatric admission for symptom stabilization and safety. Second clinical certificate was filled out for the court. Patient deferred mental health court. -Medications: Abilify to 15 mg by mouth at bedtime for mood stabilization/psychosis. Titrate to 20 mg over the weekend. Continue lithium 300 mg by mouth twice a day mood stabilization -When necessary Ativan and Haldol for agitation/aggression. -NRT - nicotine patch -SW on board for discharge planning. Encouraged the patient to participate in kale. Emigdio Jose M.D. Objective - Vital Signs Vital signs: Vital Signs Temp 97.1 F L 03/07/23 07:06 Pulse 97 03/08/23 09:44 Resp 16 03/07/23 07:06 BP 114/68 03/08/23 09:44 Pulse Ox 97 03/04/23 06:47 FiO2 - Labs CBC & Chem 7: 03/05/23 11:00 03/05/23 11:00
[2023-03-08] MEDS: CYCLOBENZAPRINE 5 MG TAB PO SCH (20:26)
[2023-03-08] MEDS: ARIPiprazole 15 MG TAB PO SCH (20:26)
[2023-03-09] MEDS: HYDROcodone/APAP 5-325MG 1 EACH TAB PO PRN ×4 (02:00→21:35)
[2023-03-09] MEDS: FOLIC ACID 1 MG TAB PO SCH (08:26)
[2023-03-09] MEDS: NICOTINE 14MG/24HR PATCH TRANSDERM SCH (08:26)
[2023-03-09] MEDS: LITHIUM CARBONATE 300 MG CAP PO SCH ×2 (08:26→20:18)
--- NOTE | 2023-03-09 10:54 | P.PN ---
Subjective Progress Note Date: 03/09/23 Principal diagnosis: Patient Name: Deshaun Carlton Date of : 70 Patient Status: Inpatient Attending Provider: Pravin Hill Date: 03/08/23 Subjective data: The patient was seen while he was laying down in bed and promptly responded and getting up and was cooperative Patient however shows significant flight of ideas and circumstantiality tangentiality and delusional thinking Patient was unable to be redirected and remains expansive and euphoric Patient's formal and operational judgment and insight remains markedly impaired Mental Status Exam: General Appearance: Patient appears to be stated age is alert, somewhat directable but cooperates. Behavior: Patient is seated upright in his chair without any agitated behavior. Speech: Patient's speech is fluent and pressured. Less tangential than before. Mood/Affect: Mood is "euphoric and expansive," Suicidality/Homicidality: Patient denies any suicidal or homicidal ideation. Perceptions: Patient denies any visual hallucinations and denies any auditory hallucinations Though content/process: Patient continues to endorse bizarre delusional thought content, paranoia, buddhist preoccupation, grandiosity however is less forthcoming with his delusions Memory and concentration: AOX3, grossly intact for the purposes of this session Judgment and insight: Poor Assessment: Schizoaffective disorder, bipolar type Cannabis use disorder Plan: -Patient continues to meet criteria for inpatient psychiatric admission for symptom stabilization and safety. Second clinical certificate was filled out for the court. Patient deferred mental health court. -Medications: Abilify to 15 mg by mouth at bedtime for mood stabilization/psychosis. Titrate to 20 mg over the weekend. Continue lithium 300 mg by mouth twice a day mood stabilization -When necessary Ativan and Haldol for agitation/aggression. -NRT - nicotine patch -SW on board for discharge planning. Encouraged the patient to participate in milieu. Emigdio Jose M.D. Patient Name: Deshaun Carlton Date of : 70 Patient Status: Inpatient Attending Provider: Pravin Hill Date: 03/09/23 Subjective data: The conversation was very similar to the one from yesterday The patient was seen while he was laying down in bed and promptly responded and getting up and was cooperative Patient however shows significant flight of ideas and circumstantiality tangentiality and delusional thinking Patient was unable to be redirected and remains expansive and euphoric Patient's formal and operational judgment and insight remains markedly impaired Mental Status Exam: General Appearance: Patient appears to be stated age is alert, somewhat directable but cooperates. Behavior: Patient is seated upright in his chair without any agitated behavior. Speech: Patient's speech is fluent and pressured. Less tangential than before. Mood/Affect: Mood is "euphoric and expansive," Suicidality/Homicidality: Patient denies any suicidal or homicidal ideation. Perceptions: Patient denies any visual hallucinations and denies any auditory hallucinations Though content/process: Patient continues to endorse bizarre delusional thought content, paranoia, buddhist preoccupation, grandiosity however is less forthcoming with his delusions Memory and concentration: AOX3, grossly intact for the purposes of this session Judgment and insight: Poor Assessment: Schizoaffective disorder, bipolar type Cannabis use disorder Plan: -Patient continues to meet criteria for inpatient psychiatric admission for symp agustina stabilization and safety. Second clinical certificate was filled out for the court. Patient deferred mental health court. -Medications: Abilify to 15 mg by mouth at bedtime for mood stabilization/psychosis. Titrate to 20 mg over the weekend. Continue lithium 300 mg by mouth twice a day mood stabilization -When necessary Ativan and Haldol for agitation/aggression. -NRT - nicotine patch - on board for discharge planning. Encouraged the patient to participate in milieuMarcia Jose M.D. 03/09/23 Objective - Vital Signs Vital signs: Vital Signs Temp 97.1 F L 03/07/23 07:06 Pulse 82 03/09/23 08:31 Resp 16 03/07/23 07:06 BP 117/65 03/09/23 08:31 Pulse Ox 97 03/04/23 06:47 FiO2 - Labs CBC & Chem 7: 03/05/23 11:00 03/05/23 11:00
[2023-03-09] MEDS: CYCLOBENZAPRINE 5 MG TAB PO SCH (21:35)
[2023-03-10 07:20] VITALS: BP 111/56; PULSE 80; TEMP 97.9
[2023-03-10] MEDS: NICOTINE 14MG/24HR PATCH TRANSDERM SCH (08:33)
[2023-03-10] MEDS: FOLIC ACID 1 MG TAB PO SCH (08:33)
[2023-03-10] MEDS: LITHIUM CARBONATE 300 MG CAP PO SCH (08:33)
[2023-03-10] MEDS: HYDROcodone/APAP 5-325MG 1 EACH TAB PO PRN (08:42)
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
== END 2023-03-10 15:22 | disposition home or self-care (01) | DRG 750 ==
LOC: EC 11:00 → 3MHU 19:46
PROVIDERS: ADMIT Psychiatry & Neurology Psychiatry; ATTEND Psychiatry & Neurology Psychiatry
DX: F25.0 Schizoaffective disorder, bipolar type (principal); F23 Brief psychotic disorder; R45.6 Violent behavior; F12.10 Cannabis abuse, uncomplicated; F17.200 Nicotine dependence, unspecified, uncomplicated; M79.642 Pain in left hand; G89.29 Other chronic pain; M54.50 Low back pain, unspecified; R45.1 Restlessness and agitation; Z20.822 Contact with and (suspected) exposure to COVID-19; Z28.310 Unvaccinated for COVID-19; Z78.1 Physical restraint status; Z71.89 Other specified counseling; Z56.0 Unemployment, unspecified; Z91.148 Patient's other noncompliance with medication regimen for other reason
CPT/HCPCS: 36415; 72100; 80048; 80053; 80061; 80306; 80320; 81001; 82075; 82248; 83036; 84443; 85025; 86701; 86704; 86803; 87340; 87636; 96372; 99285